=== PATIENT | female | born 1930 | race Caucasian/White ===

== ENCOUNTER 2016-12-27 15:18 | Emergency (ER) | payer MEDICARE ==
[2016-12-27 15:36] VITALS: BP 153/52
[2016-12-27] MEDS ORDERED: Naproxen TAB* 375 MG PO ONE (16:03)
[2016-12-27] MEDS ORDERED: Naproxen TAB* 250 MG PO ONE (16:10)
--- NOTE | 2016-12-27 16:23 | UC ---
Knee Pain HPI - HPI Summary HPI Summary: 86 female presents with complaints of right knee pain after a fall that occurred just [employer] while walking out of [employer]. Patient states she tripped over some bumpy tile and fell on her right knee. Her knee landed on the cement. She states she did fall on her right wrist but denies any significant pain and breaking her glasses from the fall. But she denies any LOC and head pain. Her only complaint at this time is her right knee. Admits to swelling and bruising. Denies any loss of ROM and numbness/tingling outside of her norm. Patient has Guillene [place] and since has had swelling and some numbness of LE. Denies anklle , hip and back/neck pain. Is able to bear weight and walk with minimal pain. - History of Current Complaint Chief Complaint: UCLowerExtremity Stated Complaint: RIGHT KNEE INJURY Time Seen by Provider: 12/27/16 15:33 Hx Obtained From: Patient ?: No Onset/Duration: Sudden Onset Severity Initially: Mild Severity Currently: Moderate Pain Intensity: 8 Pain Scale Used: 0-10 Numeric - ache Character: Sharp - with certain movement, Aching Aggravating Factor(s): Movement, Weight Bearing Alleviating Factor(s): Rest Associated Signs And Symptoms: Positive: Swelling, Bruising Able to Bear Weight: Yes - Allergies/Home Medications Allergies/Adverse Reactions: Allergies Allergy/AdvReac Type Severity Reaction Status Date / Time No Known Allergies Allergy Verified 12/27/16 15:26 Home Medications: Home Medications Amlodipine Besylate [Norvasc 10 mg tab] 10 mg PO DAILY 12/27/16 [History Confirmed 12/27/16] Aspirin TAB* [Aspirin 325 MG TAB*] 325 mg PO DAILY 12/27/16 [History Confirmed 12/27/16] Atorvastatin* [Lipitor*] 40 mg PO DAILY 12/27/16 [History Confirmed 12/27/16] Benazepril HCl [Lotensin-] 40 mg PO DAILY 12/27/16 [History Confirmed 12/27/16] Furosemide TAB* [Lasix TAB*] 40 mg PO DAILY 12/27/16 [History Confirmed 12/27/16 ] PMH/Surg Hx/FS Hx/Imm Hx Cardiovascular History Of: Reports: Hypertension Comment Only: Cardiac Disorders - BLOCK CORONARY ARTERY - Surgical History Surgical History: Yes Surgery Procedure, Year, and Place: GALL BLADDER REMOVAL, TONSILLECTOMY - Family History Known Family History: Positive: None - Social History Alcohol Use: None Substance Use Type: None Smoking Status (MU): Never Smoked Tobacco Review of Systems Constitutional: Negative Skin: Bruising Respiratory: Negative Cardiovascular: Negative Motor: Negative Neurovascular: Negative Musculoskeletal: Arthralgia, Edema - right knee, Myalgia Neurological: Negative Psychological: Negative All Other Systems Reviewed And Are Negative: Yes Physical Exam Triage Information Reviewed: Yes Appearance: Well-Appearing, No Pain Distress, Well-Nourished Vital Signs: Initial Vital Signs Temp 98.8 F 12/27/16 15:27 Resp 20 12/27/16 15:27 BP 153/52 12/27/16 15:27 Pulse Ox 97 12/27/16 15:27 hypertension noted, patient is diagnosed and medicated. was advised to follow up with pcp to have re-check Vital Signs Reviewed: Yes Eyes: Positive: Conjunctiva Clear ENT: Positive: Normal ENT inspection, Hearing grossly normal Neck: Positive: Supple, Nontender Respiratory: Positive: Chest non-tender, Lungs clear, Normal breath sounds Cardiovascular: Positive: RRR, No Murmur, Pulses Normal - 2+ pedal b/l Musculoskeletal: Positive: Strength Intact, ROM Intact, Edema @ - b/l knee, right knee is acutely edematous with ecchymosis on anterior, medial knee, no obvious deformity noted, difficult to palpate due to swelling and size. most tender to palpation of anterior medial knee. patient had gulliane barre. skin intact. sensation intact. Neurological Exam: Normal Neurological: Positive: Alert Psychological Exam: Normal Skin Exam: Normal Diagnostics - Radiology right knee Xray Interpretation: No Acute Changes - minor osteoarthritis and dependent edema Radiology Interpretation Completed By: Radiologist Knee Pain Course/Dx - Course Course Of Treatment: given Aleve and ice for pain and inflammation while in office. x-ray obtained and negative for acute injury/fracture. patient will be treated for knee contusion, ice and NSAIDs, follow up with PCP for elevated BP and acute injury. Aware of worsening signs and symptoms to watch out for and if persist to return as further imaging may be needed. - Differential Dx/Diagnosis Differential Diagnosis/HQI/PQRI: Contusion, Dislocation, Fracture (Closed), Sprain, Strain, Other Provider Diagnoses: Knee Contusion, Right Discharge - Discharge Plan Condition: Stable Disposition: HOME Patient Education Materials: Contusion in Adults (ED), Knee Pain (ED) Referrals: Curtis Beltran MD [Primary Care Provider] - Additional Instructions: Take OTC Aleve or Ibuprofen for inflammation/swelling and pain as needed. Ice your knee 20 minutes on and 20 minutes off to help decrease swelling for the next couple of days Rest your knee and elevate. Use pain as your guide. If your knee pain increases, worsen or new symptoms develop please seek medical attention. Follow up with PCP.
--- NOTE | 2016-12-27 16:31 | RAD ---
INDICATION: Right knee pain COMPARISON: None TECHNIQUE: 2 views were obtained. FINDINGS: The bony structures are osteopenic. There is minor patellofemoral and medial joint space narrowing. There is no joint effusion. There is mild dependent edema. IMPRESSION: MINOR OSTEOARTHRITIS AND DEPENDENT EDEMA
== END 2016-12-27 16:44 | disposition home or self-care (01) ==
LOC: UCCORT 15:18
DX: S80.01XA Contusion of right knee, initial encounter (principal); W18.09XA Striking against other object with subsequent fall, initial encounter; Y93.89 Activity, other specified; Y92.512 Supermarket, store or market as the place of occurrence of the external cause; I25.10 Atherosclerotic heart disease of native coronary artery without angina pectoris; I10 Essential (primary) hypertension; Z90.49 Acquired absence of other specified parts of digestive tract
CPT/HCPCS: 99212; A9270-GY; G0463

== ENCOUNTER 2019-03-01 10:40 | Emergency (ER) | payer MEDICARE ==
[2019-03-01 11:14] VITALS: BP 131/44
--- NOTE | 2019-03-01 11:25 | ED ---
Abdominal Pain/Female - HPI Summary HPI Summary: 88 yr old with epigatric pain that goes into her back. She has had this pain on and off for years. She states she has had pain in her chest as well all the way up to the upper sternum. She had Nausea and vomiting yesterday as well. Her pain was 8/10 upon coming here, but now has subsided. No fever or chills. 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 A site was her pancreas in the past. - History of Current Complaint Chief Complaint: UCAbdominalPain Stated Complaint: ABD PAIN NAUSEA Time Seen by Provider: 03/01/19 11:02 Pain Intensity: 7 Allergies/Adverse Reactions: Allergies Allergy/AdvReac Type Severity Reaction Status Date / Time morphine Allergy Unknown Hallucinati Verified 03/01/19 10:48 ons Home Medications: Home Medications Apixaban* [Eliquis*] 5 mg PO BID 03/01/19 [History Confirmed 03/01/19] PMH/Surg Hx/FS Hx/Imm Hx Cardiovascular History: Reports: Hx Hypertension - Surgical History Surgery Procedure, Year, and Place: GALL BLADDER REMOVAL, TONSILLECTOMY Infectious Disease History: No Infectious Disease History: Denies: Traveled Outside the [place] in Last 30 Days - Family History Known Family History: Positive: None - Social History Alcohol Use: None Substance Use Type: Reports: None Smoking Status (MU): Former Smoker Review of Systems Positive: Abdominal Pain, Nausea All Other Systems Reviewed And Are Negative: Yes Physical Exam Triage Information Reviewed: Yes Vital Signs On Initial Exam: Initial Vitals Temp Pulse Resp BP Pulse Ox 98.3 F 54 16 131/44 98 03/01/19 10:48 03/01/19 10:48 03/01/19 10:48 03/01/19 10:48 03/01/19 10:48 Vital Signs Reviewed: Yes Appearance: Positive: Well-Appearing, No Pain Distress Skin: Positive: Warm Head/Face: Positive: Normal Head/Face Inspection Eyes: Positive: EOMI, KILO ENT: Positive: Normal ENT inspection Neck: Positive: Nontender Respiratory/Lung Sounds: Positive: Clear to Auscultation, Breath Sounds Present Cardiovascular: Positive: RRR. Negative: Murmur Abdomen Description: Positive: Nontender. Negative: Distended Musculoskeletal: Positive: Strength/ROM Intact Neurological: Positive: Sensory/Motor Intact, Alert, Oriented to Person Place, Time, CN Intact II-III Psychiatric: Positive: Normal - Cyndee Coma Scale Best Eye Response: 4 - Spontaneous Best Motor Response: 6 - Obeys Commands Best Verbal Response: 5 - Oriented Coma Scale Total: 15 Diagnostics - Vital Signs Vital Signs Temp Pulse Resp BP Pulse Ox 03/01/19 10:48 98.3 F 54 16 131/44 98 - Laboratory Lab Statement: Any lab studies that have been ordered have been reviewed, and results considered in the medical decision making process. - EKG 03/01/2019 Cardiac Rate: Bradycardia EKG Rhythm: Atrial Fibrillation ST Segment: Non-Specific - RBBB and LPFB. No STEMI. Ectopy: None Abdominal Pain Fem Course/Dx - Course Course Of Treatment: 88 yr old female with abdominal pain. - Diagnoses Provider Diagnoses: Epigastric pain Discharge - Sign-Out/Discharge Documenting (check all that apply): Patient Departure All imaging exams completed and their final reports reviewed: No Studies - Discharge Plan Condition: Good Disposition: AGAINST MEDICAL ADVICE Referrals: Noreen Hurt MD [Medical Doctor] - - Billing Disposition and Condition Condition: GOOD Disposition: Against Medical Advice
== END 2019-03-01 11:32 | disposition left against medical advice (07) ==
LOC: UCCORT 10:40
DX: R10.13 Epigastric pain (principal); I10 Essential (primary) hypertension; Z87.891 Personal history of nicotine dependence
CPT/HCPCS: 93005; 99212; G0463

== ENCOUNTER 2020-02-29 09:15 | Inpatient (IN) ==
[~2020-02-29 09:15] MED LIST: NS 0.9% IVPB SCH; Piperacillin/Tazobac ADVAN(*) 3.375 GM in NS 0.9% 100 ml BAG 100 ML IV SCH; RITUXIMAB IVPB SCH
[2020-02-29 10:01] LABS: Hematocrit 44 % (35-47); Hemoglobin 14.6 g/dL (12.0-16.0); Mean Corpuscular HGB Conc 33 g/dL (31-36); Mean Corpuscular Hemoglobin 26 pg (27-31); Mean Corpuscular Volume 80 fL (80-97); Mean Platelet Volume 8.1 fL (7.4-10.4); Platelet Count 604 10^3/uL (150-450); Red Blood Count 5.55 10^6 /uL (3.70-4.87); Red Cell Distribution Width 18 % (10-15)
[2020-02-29 10:04] LABS: ABS Lymphocytes 0.5 10^3/ul (1.0-4.8); ABS Monocytes 1.4 10^3/ul (0-0.8); Lymphocyte % 2.3 %
[2020-02-29 10:17] LABS: Albumin 2.7 g/dL (3.2-5.2); Albumin/Globulin Ratio 0.9 (1-3); BUN/Creatinine Ratio 36.3 (8-20); Calcium 9.3 mg/dL (8.6-10.3); EGFR African American 27.9 (>60); Globulin 2.9 g/dL (2-4); Total Bilirubin 0.6 mg/dL (0.2-1.0); Total Protein 5.6 g/dL (6.4-8.9)
[2020-02-29 10:20] LABS: Potassium 5.5 mmol/L (3.5-5.0)
[2020-02-29] MEDS ORDERED: Furosemide 20 mg/2 ml IV VIAL ONE (10:42)
[2020-02-29] MEDS ORDERED: Ondansetron 4 mg VIAL 2 MG/ML 2 ml VIAL ONE (10:42)
[2020-02-29] MEDS ORDERED: Ondansetron 4 mg VIAL 2 MG/ML 2 ml VIAL IV PRN (12:08)
[2020-02-29 13:12] LABS: Albumin 2.4 g/dL (3.2-5.2); Albumin/Globulin Ratio 0.8 (1-3); BUN/Creatinine Ratio 35.8 (8-20); Calcium 8.8 mg/dL (8.6-10.3); EGFR African American 27.9 (>60); Globulin 2.9 g/dL (2-4); Total Bilirubin 0.6 mg/dL (0.2-1.0); Total Protein 5.3 g/dL (6.4-8.9)
[2020-02-29 14:21] LABS: Potassium 6.1 mmol/L (3.5-5.0)
[2020-02-29 14:24] LABS: TSH (Thyroid Stimulating Horm) 11.35 mcIU/mL (0.34-5.60)
[2020-02-29] MEDS ORDERED: NS 0.9% 1000 ml BAG 1,000 ML IV SCH ×2 (14:30→15:09)
[2020-02-29] MEDS ORDERED: NS 0.9% 1000 ml BAG 400 ML IV SCH (14:30)
[2020-02-29 15:25] LABS: Urine Appearance Cloudy; Urine Bilirubin Negative (Negative); Urine Blood 1+ (Negative); Urine Color Yellow; Urine Glucose Negative (Negative); Urine Ketones Negative (Negative); Urine Nitrite Negative (Negative); Urine Protein Negative (Negative); Urine Specific Gravity 1.011 (1.010-1.030); Urine Urobilinogen Negative (Negative)
[2020-02-29 15:26] LABS: Free T4 1.02 ng/dL (0.61-1.12)
[2020-02-29 15:30] LABS: Urine Bacteria Absent (Absent); Urine Red Blood Cell Trace(0-2/hpf) (Absent); Urine Squamous Epithelial Cell Present (Absent); Urine Transitional Epithelial Present (Absent); Urine White Blood Cell 1+(6-10/hpf) (Absent)
[2020-02-29] MEDS ORDERED: Sodium Polystyrene ORAL.SUSP 15 GM/60 ML BTL PO ONE (15:42)
[2020-02-29 18:18] LABS: ALT 54 U/L (7-52); Albumin 2.3 g/dL (3.2-5.2); Albumin/Globulin Ratio 0.8 (1-3); Alkaline Phosphatase 263 U/L (34-104); BUN/Creatinine Ratio 36.6 (8-20); Blood Urea Nitrogen 74 mg/dL (6-24); CO2 Carbon Dioxide 22 mmol/L (22-32); Calcium 8.6 mg/dL (8.6-10.3); Chloride 88 mmol/L (101-111); EGFR African American 28.2 (>60); EGFR Non-African American 23.3 (>60); Globulin 2.9 g/dL (2-4); Glucose 123 mg/dL (70-100); Sodium 123 mmol/L (135-145); Total Protein 5.2 g/dL (6.4-8.9)
[2020-02-29 18:22] LABS: Anion Gap 13 mmol/L (2-11)
[2020-02-29] MEDS ORDERED: NS 0.9% IVPB SCH (18:30)
[2020-02-29] MEDS ORDERED: CEFEPIME ADVAN IVPB SCH (18:30)
[2020-02-29 22:24] LABS: BUN/Creatinine Ratio 34.5 (8-20); Calcium 8.2 mg/dL (8.6-10.3); EGFR Non-African American 23.2 (>60)
[2020-02-29 22:26] LABS: Potassium 5.2 mmol/L (3.5-5.0)
[2020-02-29] MEDS: NS 0.9% 1000 ml BAG 1,000 ML IV SCH (22:45)
[2020-03-01 05:43] LABS: Hematocrit 39 % (35-47); Hemoglobin 12.9 g/dL (12.0-16.0); Mean Corpuscular HGB Conc 33 g/dL (31-36); Mean Corpuscular Hemoglobin 26 pg (27-31); Mean Corpuscular Volume 80 fL (80-97); Mean Platelet Volume 8.2 fL (7.4-10.4); Platelet Count 466 10^3/uL (150-450); Red Blood Count 4.89 10^6 /uL (3.70-4.87); Red Cell Distribution Width 18 % (10-15); White Blood Count 18.1 10^3/uL (3.5-10.8)
[2020-03-01 05:59] LABS: Albumin 2.1 g/dL (3.2-5.2); Albumin/Globulin Ratio 0.8 (1-3); BUN/Creatinine Ratio 35.8 (8-20); EGFR African American 30.3 (>60); Globulin 2.7 g/dL (2-4); Potassium 4.9 mmol/L (3.5-5.0); Total Bilirubin 0.6 mg/dL (0.2-1.0); Total Protein 4.8 g/dL (6.4-8.9)
[2020-03-01 07:34] LABS: ABS Basophils 0.1 10^3/ul (0-0.2); ABS Lymphocytes 0.4 10^3/ul (1.0-4.8); Nucleated Red Blood Cells % 0.1
[2020-03-01] MEDS ORDERED: HYDROmorphone 0.5 MG/0.5 ML SYRINGE IV SLOW PU PRN (07:45)
[2020-03-01] MEDS ORDERED: Piperacillin/Tazobac ADVAN(*) 3.375 GM in NS 0.9% 100 ml BAG 100 ML IVPB ONE (09:58)
[2020-03-01] MEDS ORDERED: Zosyn per Pharmacy NOTE FOLLOW UP SCH (10:00)
[2020-03-01] MEDS ORDERED: Lorazepam PYXIS KEY PRN (10:09)
[2020-03-01] MEDS ORDERED: LORazepam 2 mg VIAL 1 ml IV PUSH PRN (10:09)
[2020-03-01] MEDS ORDERED: Prochlorperazine 5 mg/ml 2 ml VIAL (10 mg) IV PRN (10:39)
[2020-03-01 10:55] LABS: ABS Basophils 0.1 10^3/ul (0-0.2); ABS Lymphocytes 0.3 10^3/ul (1.0-4.8); ABS Monocytes 1.2 10^3/ul (0-0.8); Eosinophil % 0.1 %; Hematocrit 44 % (35-47); Hemoglobin 14.6 g/dL (12.0-16.0); Lymphocyte % 1.3 %; Mean Corpuscular HGB Conc 33 g/dL (31-36); Mean Corpuscular Hemoglobin 26 pg (27-31); Mean Corpuscular Volume 79 fL (80-97); Mean Platelet Volume 8.4 fL (7.4-10.4); Platelet Count 503 10^3/uL (150-450); Red Blood Count 5.54 10^6 /uL (3.70-4.87); Red Cell Distribution Width 18 % (10-15); White Blood Count 21.9 10^3/uL (3.5-10.8)
[2020-03-01] MEDS: Hydrocortisone INJ 100 MG/2ML 2 ML VIAL IV SCH ×3 (11:17→23:33)
[2020-03-01] MEDS: Pantoprazole VIAL 40 MG VIAL IV SCH (11:17)
[2020-03-01 11:59] LABS: Hematocrit 42 % (35-47); Hemoglobin 14.2 g/dL (12.0-16.0); Mean Corpuscular HGB Conc 34 g/dL (31-36); Mean Corpuscular Hemoglobin 26 pg (27-31); Mean Corpuscular Volume 79 fL (80-97); Mean Platelet Volume 8.1 fL (7.4-10.4); Platelet Count 478 10^3/uL (150-450); Red Blood Count 5.37 10^6 /uL (3.70-4.87); Red Cell Distribution Width 17 % (10-15); White Blood Count 20.6 10^3/uL (3.5-10.8)
[2020-03-01 12:03] LABS: ABS Basophils 0.2 10^3/ul (0-0.2); ABS Lymphocytes 0.3 10^3/ul (1.0-4.8); Lymphocyte % 1.5 %; Nucleated Red Blood Cells % 0.1
[2020-03-01 13:43] LABS: EGFR African American 30.8 (>60); EGFR Non-African American 25.5 (>60)
[2020-03-01 15:45] LABS: Albumin 2.3 g/dL (3.2-5.2); Albumin/Globulin Ratio 0.9 (1-3); BUN/Creatinine Ratio 36.6 (8-20); Calcium 8.3 mg/dL (8.6-10.3); EGFR African American 30.1 (>60); EGFR Non-African American 24.9 (>60); Globulin 2.6 g/dL (2-4); Potassium 4.6 mmol/L (3.5-5.0); Total Bilirubin 0.8 mg/dL (0.2-1.0); Total Protein 4.9 g/dL (6.4-8.9)
[2020-03-01] MEDS: ZOSYN 3.375 GM Q12H per EXTENDED INFUSION IV SCH (16:07)
[2020-03-01] MEDS: Heparin DRIP 25,000 UNITS(*) 25,000 UNITS/500 ML BAG IV SCH (16:08)
[2020-03-01] MEDS: Heparin 5000 UNITS/ML VIAL(*) 1 ml vial IV SCH (16:08)
[2020-03-02] MEDS: ZOSYN 3.375 GM Q12H per EXTENDED INFUSION IV SCH ×4 (00:01→21:03)
[2020-03-02 00:13] LABS: Hematocrit 39 % (35-47); Hemoglobin 13.2 g/dL (12.0-16.0); Mean Corpuscular HGB Conc 34 g/dL (31-36); Mean Corpuscular Hemoglobin 27 pg (27-31); Mean Corpuscular Volume 79 fL (80-97); Mean Platelet Volume 8.3 fL (7.4-10.4); Platelet Count 463 10^3/uL (150-450); Red Blood Count 4.91 10^6 /uL (3.70-4.87); Red Cell Distribution Width 17 % (10-15); White Blood Count 22.7 10^3/uL (3.5-10.8)
[2020-03-02 00:36] LABS: ABS Lymphocytes 0.2 10^3/ul (1.0-4.8); ABS Monocytes 0.8 10^3/ul (0-0.8); Lymphocyte % 0.9 %
[2020-03-02 00:55] LABS: Albumin 2.1 g/dL (3.2-5.2); Albumin/Globulin Ratio 0.9 (1-3); BUN/Creatinine Ratio 37.1 (8-20); EGFR African American 29.5 (>60); EGFR Non-African American 24.4 (>60); Globulin 2.4 g/dL (2-4); Potassium 4.7 mmol/L (3.5-5.0); Total Bilirubin 0.7 mg/dL (0.2-1.0); Total Protein 4.5 g/dL (6.4-8.9)
[2020-03-02] MEDS: Heparin 5000 UNITS/ML VIAL(*) 1 ml vial IV SCH ×2 (01:35→01:37)
[2020-03-02] MEDS: Hydrocortisone INJ 100 MG/2ML 2 ML VIAL IV SCH ×4 (05:19→23:27)
[2020-03-02 06:02] LABS: Hematocrit 39 % (35-47); Hemoglobin 13.2 g/dL (12.0-16.0); Mean Corpuscular HGB Conc 33 g/dL (31-36); Mean Corpuscular Hemoglobin 27 pg (27-31); Mean Corpuscular Volume 80 fL (80-97); Mean Platelet Volume 8.5 fL (7.4-10.4); Platelet Count 428 10^3/uL (150-450); Red Blood Count 4.94 10^6 /uL (3.70-4.87); Red Cell Distribution Width 18 % (10-15); White Blood Count 21.4 10^3/uL (3.5-10.8)
[2020-03-02 06:19] LABS: Albumin 2.1 g/dL (3.2-5.2); Calcium 7.9 mg/dL (8.6-10.3); Magnesium 2.1 mg/dL (1.9-2.7); Potassium 4.5 mmol/L (3.5-5.0); Total Bilirubin 0.7 mg/dL (0.2-1.0)
[2020-03-02 06:25] LABS: Albumin/Globulin Ratio 0.8 (1-3); BUN/Creatinine Ratio 37.7 (8-20); EGFR African American 31.6 (>60); EGFR Non-African American 26.1 (>60); Globulin 2.5 g/dL (2-4); Total Protein 4.6 g/dL (6.4-8.9)
[2020-03-02 06:55] LABS: ABS Lymphocytes 0.3 10^3/ul (1.0-4.8); ABS Monocytes 0.9 10^3/ul (0-0.8); Lymphocyte % 1.3 %
[2020-03-02 07:40] LABS: Albumin 2.2 g/dL (3.2-5.2); Albumin/Globulin Ratio 0.8 (1-3); EGFR African American 30.4 (>60); EGFR Non-African American 25.2 (>60); Globulin 2.6 g/dL (2-4); Potassium 4.8 mmol/L (3.5-5.0); Total Bilirubin 0.7 mg/dL (0.2-1.0); Total Protein 4.8 g/dL (6.4-8.9)
[2020-03-02] MEDS: NS 0.9% 1000 ml BAG 1,000 ML IV SCH ×2 (08:51→19:49)
[2020-03-02] MEDS: Pantoprazole VIAL 40 MG VIAL IV SCH ×2 (08:53→08:59)
[2020-03-03] MEDS: Heparin DRIP 25,000 UNITS(*) 25,000 UNITS/500 ML BAG IV SCH (00:34)
[2020-03-03] MEDS: Hydrocortisone INJ 100 MG/2ML 2 ML VIAL IV SCH ×4 (06:13→23:31)
[2020-03-03 06:39] LABS: Hematocrit 38 % (35-47); Hemoglobin 12.5 g/dL (12.0-16.0); Mean Corpuscular HGB Conc 33 g/dL (31-36); Mean Corpuscular Hemoglobin 27 pg (27-31); Mean Corpuscular Volume 80 fL (80-97); Mean Platelet Volume 8.9 fL (7.4-10.4); Platelet Count 402 10^3/uL (150-450); Red Blood Count 4.71 10^6 /uL (3.70-4.87); Red Cell Distribution Width 18 % (10-15)
[2020-03-03 06:44] LABS: ABS Lymphocytes 0.3 10^3/ul (1.0-4.8); ABS Monocytes 1.4 10^3/ul (0-0.8); Lymphocyte % 1.5 %
[2020-03-03 06:50] LABS: Albumin 2.1 g/dL (3.2-5.2); Albumin/Globulin Ratio 0.9 (1-3); BUN/Creatinine Ratio 38.5 (8-20); Calcium 7.9 mg/dL (8.6-10.3); EGFR African American 36.6 (>60); EGFR Non-African American 30.3 (>60); Globulin 2.3 g/dL (2-4); Magnesium 2.1 mg/dL (1.9-2.7); Potassium 3.6 mmol/L (3.5-5.0); Total Bilirubin 0.6 mg/dL (0.2-1.0); Total Protein 4.4 g/dL (6.4-8.9)
[2020-03-03] MEDS: NS 0.9% 1000 ml BAG 1,000 ML IV SCH ×2 (07:40→19:01)
[2020-03-03] MEDS: ZOSYN 3.375 GM Q12H per EXTENDED INFUSION IV SCH ×2 (08:57→21:56)
[2020-03-03] MEDS: Pantoprazole VIAL 40 MG VIAL IV SCH (08:59)
[2020-03-03] MEDS: Megestrol 400 MG/10 ML SUSP PO SCH (12:36)
[2020-03-03] MEDS: Heparin 5000 UNITS/ML VIAL(*) 1 ml vial IV SCH (23:31)
[2020-03-04] MEDS: NS 0.9% 1000 ml BAG 1,000 ML IV SCH (05:28)
[2020-03-04] MEDS: Hydrocortisone INJ 100 MG/2ML 2 ML VIAL IV SCH ×2 (05:28→11:01)
[2020-03-04 05:37] LABS: ABS Lymphocytes 0.4 10^3/ul (1.0-4.8); ABS Monocytes 1.4 10^3/ul (0-0.8); Hematocrit 36 % (35-47); Hemoglobin 11.9 g/dL (12.0-16.0); Lymphocyte % 1.7 %; Mean Corpuscular HGB Conc 33 g/dL (31-36); Mean Corpuscular Hemoglobin 26 pg (27-31); Mean Corpuscular Volume 80 fL (80-97); Mean Platelet Volume 9.1 fL (7.4-10.4); Platelet Count 348 10^3/uL (150-450); Red Blood Count 4.53 10^6 /uL (3.70-4.87); Red Cell Distribution Width 18 % (10-15); White Blood Count 21.3 10^3/uL (3.5-10.8)
[2020-03-04 06:00] LABS: BUN/Creatinine Ratio 42.3 (8-20); Calcium 7.8 mg/dL (8.6-10.3); EGFR African American 40.1 (>60); EGFR Non-African American 33.1 (>60); Globulin 2.1 g/dL (2-4); Potassium 3.3 mmol/L (3.5-5.0); Total Bilirubin 0.6 mg/dL (0.2-1.0); Total Protein 4.1 g/dL (6.4-8.9)
[2020-03-04] MEDS: Pantoprazole VIAL 40 MG VIAL IV SCH (09:08)
[2020-03-04] MEDS: Megestrol 400 MG/10 ML SUSP PO SCH (09:08)
[2020-03-04] MEDS: ZOSYN 3.375 GM Q12H per EXTENDED INFUSION IV SCH (09:08)
[2020-03-04] MEDS: KCL 10 MEQ/50 ML IVPREMIX 10 MEQ/50 ML BAG IV SCH ×2 (11:02→12:31)
[2020-03-04 12:49] VITALS: BP 132/61
== END 2020-03-04 14:40 | disposition home or self-care (01) | DRG 640 ==
LOC: CHOA 09:15 → MEDTELE 13:31
PROVIDERS: ADMIT Internal Medicine Hematology & Oncology; ATTEND Pediatrics Neonatal-Perinatal Medicine